=== PATIENT | female | born 1960 | race Caucasian/White ===

== ENCOUNTER 2024-11-10 18:53 | Observation (INO) ==
[2024-11-10 19:20] LABS: Basophils # (auto) 0.03 K/uL (0.00-0.20); Basophils % (auto) 0.2 %; Eosinophils # (auto) 0.06 K/uL (0.00-0.50); Eosinophils % (auto) 0.5 %; Hematocrit (blood only) 35.5 % (37.0-47.0); Hemoglobin 12.6 g/dl (12.0-16.0); Immature Granulocytes # (auto) 0.05 K/uL (0.01-0.20); Immature Granulocytes % (auto) 0.4 %; Lymphocytes # (auto) 1.16 K/uL (1.20-3.40); Lymphocytes % (auto) 9.3 %; Mean Corpuscular Hemoglobin 30.7 pg (25.0-34.0); Mean Corpuscular Hgb Conc 35.5 g/dL (32.0-36.0); Mean Corpuscular Volume 86.4 fL (80.0-100.0); Monocytes % (auto) 4.8 %; Neutrophils # (auto) 10.64 K/uL (1.40-6.50); Neutrophils % (auto) 84.8 %; Platelet Count 314 K/uL (130-400); RDW Coefficient of Variation 13.6 % (11.5-14.5); RDW Standard Deviation 42.1 fL (36.4-46.3); Red Blood Count 4.11 M/uL (4.20-5.40); White Blood Count 12.54 K/ul (4.8-10.8)
[2024-11-10 19:44] LABS: Albumin Globulin Ratio 1.4 (0.9-2); Albumin Level 4.4 gm/dl (3.4-5.0); BUN Creatinine Ratio 15.9 (10-20); Bilirubin,Total 0.7 mg/dl (0.2-1.0); Calcium 9.9 mg/dl (8.6-10.3); Creatinine Clr Calc Pharmacy 60.9 ml/min; Globulin 3.1 gm/dl (2.5-4.0); Total Protein 7.5 gm/dl (6.0-8.3)
[2024-11-10 19:52] LABS: Potassium 3.9 mmol/L (3.5-5.1)
[2024-11-10 21:14] LABS: Appearance Urine Cloudy (Clear); Bacteria Urine Automated None Seen (None Seen); Bilirubin Urine Negative (Negative); Blood Urine Trace (Negative); Cast Urine Automated 0-2 /lpf (0-2); Color Urine Yellow; Epithelial Cell Urine Auto 0-2 /hpf (0-2); Glucose Urine UA Negative (Negative); Ketones Urine 1+ (Negative); Leukocyte Esterase Urine 3+ (Negative); Nitrite Urine Negative (Negative); Protein Urine Negative (Negative); Specific Gravity Urine 1.021 (1.000-1.030); Urobilinogen Urine Negative (Negative); WBC Urine Automated >50 /hpf (0-5)
[2024-11-10] MEDS: ONDANSETRON INJ 2 MG/ML 2 ML VIAL IV STA (22:33)
[2024-11-10] MEDS: ACETAMINOPHEN 1,000 MG/100 ML VIAL IV STA (22:33)
[2024-11-10] MEDS: OPTIRAY 320 100ml IV ONE (22:50)
--- NOTE | 2024-11-11 00:06 | CT Scan Report ---
Exam(s): CT ABDOMEN + PELVIS With Contrast IV Amt: 93ml optiray 320 EXAM: CT Abdomen and Pelvis With Intravenous Contrast CLINICAL HISTORY: Reason for exam: Diverticulitis, severe abdominal pain. TECHNIQUE: Axial computed tomography images of the abdomen and pelvis with intravenous contrast. CTDI is 17.94 mGy and DLP is 846.73 mGy-cm. Automated exposure control was utilized for the study. A dose lowering technique was utilized adhering to the principles of ALARA. CONTRAST: Patient received 93ml optiray 320 of IV contrast COMPARISON: No relevant prior studies available. FINDINGS: ABDOMEN: Liver: 2 small cysts within the liver. Liver otherwise unremarkable. Gallbladder and bile ducts: Unremarkable. No calcified stones. No ductal dilation. Pancreas: Unremarkable. No mass. No ductal dilation. Spleen: Unremarkable. No splenomegaly. Adrenals: Unremarkable. No mass. Kidneys and ureters: Simple appearing cysts in both kidneys. No follow-up is necessary. No hydronephrosis or dilated ureter. Stomach and bowel: No diverticulitis. No obstruction. No mucosal thickening. PELVIS: Appendix: The appendix is distended up to a diameter of 9 mm. There is edema in the surrounding fat. Findings are consistent with acute appendicitis. Bladder: Unremarkable. No mass. Reproductive: Hysterectomy. ABDOMEN and PELVIS: Intraperitoneal space: Unremarkable. No free air. No significant fluid collection. Bones/joints: No acute findings. Soft tissues: Unremarkable. Vasculature: Unremarkable. No abdominal aortic aneurysm. Lymph nodes: Unremarkable. No enlarged lymph nodes. IMPRESSION: Appendicitis. Communications: Call Doctor Appendicitis Electronically signed by: Rodney Spence MD 11/11/24 00:05 AM
[2024-11-11] MEDS: SODIUM CHLORIDE 0.9% 1,000 ML IV ONE (00:12)
--- NOTE | 2024-11-11 00:19 | Emergency Department Note ---
Impression & Plan Appendicitis ED Provider Note NAME: KALA CUETO AGE: 64 SEX: F : 1960 ARRIVES VIA: Walk-In INFORMANT: Patient, ED PROVIDER(S): Korey Campbell MD CHIEF COMPLAINT: Abdominal pain, nausea HPI: This is a 64-year-old female presented for abdominal pain and nausea that began this morning. Patient notes that history of colitis but never had pain to severe. She notes it is a bandlike pain across her lower abdomen. She notes nausea without vomiting. She notes dry heaves. She notes diarrhea. ROS: See above HPI for pertinent positives & negatives. A total of 10 systems reviewed and were otherwise negative. PAST MEDICAL HISTORY: See Below PAST SURGICAL HISTORY: See Below FAMILY HISTORY: See Below SOCIAL HISTORY: See Below HOME MEDICATIONS: See Below ALLERGIES: See Below VITALS: See Below PHYSICAL EXAMINATION: General: resting comfortably in no acute distress Head: Normocephalic and atraumatic Eyes: Normal inspection, extraocular muscles intact Ear, nose, throat: Normal external exam Neck: Normal range of motion Respiratory: lungs clear to auscultation bilaterally Cardiovascular: Regular rate/rhythm, no murmur GI: Exquisite right lower and left lower quadrant abdominal tenderness, no rebound Extremities: nontender, moves all extremities Neuro: The patient awake and alert, appropriately conversive, no focal deficits, symmetric faces Skin: Warm, dry, and intact MEDICAL DECISION MAKING: This is a 64-year-old female presented for abdominal pain/nausea. -Blood work reveals a slight leukocytosis to 12.54 -Patient given IV fluids, Zofran and Tylenol -Urinalysis reveals possible UTI -CT imaging reveals acute appendicitis -Will give IV cefepime and Flagyl here -Discussed with surgical PA here, Parisa,, admitted to surgical service Differential diagnosis: Appendicitis, cholecystitis, diverticulitis, bowel perforation, aortic aneurysm Independent History obtained from: Diagnostics interpreted by me: ECG: None Cardiac Monitoring: An order was placed for continuous cardiac monitoring. The monitor shows a rate of 91 with sinus rhythm. Past Med/Surg History Problem List (Updated 11/11/24 @ 01:34 by Korey Campbell MD) Appendicitis (Acute) Acute appendicitis Gastritis Encounter for pre-operative examination Collagenous colitis Dysphagia Nausea Epigastric abdominal pain Right flank pain Renal cyst Colitis Medical History Dysphagia Hx of migraines Tachycardia currently on metoprolol; f/u [facility] cardiology Colitis Hypertension Depression Surgical History History of partial hysterectomy History of esophagogastroduodenoscopy (EGD) Hx of colonoscopy [place] teeth extracted Previous back surgery Family History Denies family history of Crohn's disease Colorectal cancer Ulcerative colitis Social History Smoking Status: Never smoker Second Hand Exposure: Yes (hx as child); Do You Dip or Chew Tobacco: No; Hx Alcohol Use: Yes Alcohol type: wine Hx Substance Use: No Preferred Language: Lithuanian Communication Ability: Effective Parboiler Required: No Beliefs That Will Affect Care: None Current Living Situation: Spouse and Family Feels Safe at Home: Yes Assistive Devices: Glasses Allergies Allergies Allergy/AdvReac Type Severity Reaction Status Date / Time Penicillins Allergy Mild RASH Verified 08/09/23 13:54 Home Meds Home Medications Medication Instructions Recorded Confirmed calcium citrate 250 mg PO HS 07/15/23 08/09/23 duloxetine 60 mg capsule,delayed 60 mg PO HS 07/15/23 08/09/23 release hydrochlorothiazide 12.5 mg tablet 12.5 mg PO HS 07/15/23 08/09/23 losartan 100 mg tablet 100 mg PO HS 07/15/23 08/09/23 meclizine 25 mg tablet 25 mg PO DAILY PRN Vertigo 07/15/23 08/09/23 mecobalamin (vitamin B12) 5,000 5,000 mcg PO HS 07/15/23 08/09/23 mcg chewable tablet metoprolol succinate 50 mg 50 mg PO HS 07/15/23 08/09/23 tablet,extended release 24 hr biotin 1,000 mcg chewable tablet 1,000 mcg PO HS 07/27/23 08/09/23 budesonide 3 mg 9 mg PO HS 07/27/23 08/09/23 capsule,delayed,extended release cholecalciferol (vitamin D3) 125 125 mcg PO HS 07/27/23 08/09/23 mcg (5,000 unit) tablet (Vitamin D3) omega 0-lzk-fpu-fish oil 1,200 mg 2 cap PO HS 07/27/23 08/09/23 (144 mg-216 mg) capsule (Fish Oil) Previous Rx's Medication Instructions Recorded famotidine 40 mg tablet 40 mg PO DAILY #30 tabs 08/09/23 Results & Data (ED) Vital Signs Vital Signs - 24 hr 11/10/24 18:56 11/10/24 20:50 11/10/24 20:57 Temperature 36.7 C Temperature Source Temporal Artery Scan Pulse Rate 89 77 Pulse Rate [Apical] 90 Pulse Rate from SpO2 Sensor Pulse Rhythm [Apical] Pulse Strength [Apical] Respiratory Rate 20 24 Respiratory Effort / Characteristics Respiratory Depth Respiratory Pattern Blood Pressure 172/102 H Blood Pressure [Left Arm] 162/103 H Blood Pressure Mean 125 Blood Pressure Mean [Left Arm] 122 Blood Pressure Position [Left Arm] Pulse Oximetry 97 99 Oxygen Delivery Method Room Air Room Air Sepsis Recent Fever Within 48 Hours No Sepsis New/Unexplained Change in Mental Status No Sepsis Action Taken by Nursing No Action Required 11/10/24 21:00 11/10/24 21:02 11/10/24 22:00 Temperature Temperature Source Pulse Rate 85 81 Pulse Rate [Apical] 83 Pulse Rate from SpO2 Sensor 82 83 Pulse Rhythm [Apical] Pulse Strength [Apical] Respiratory Rate 14 17 16 Respiratory Effort / Characteristics Respiratory Depth Respiratory Pattern Blood Pressure 139/85 151/100 H Blood Pressure [Left Arm] 139/85 Blood Pressure Mean 103 125 Blood Pressure Mean [Left Arm] 103 Blood Pressure Position [Left Arm] Pulse Oximetry 98 99 98 Oxygen Delivery Method Sepsis Recent Fever Within 48 Hours Sepsis New/Unexplained Change in Mental Status Sepsis Action Taken by Nursing 11/10/24 23:00 11/11/24 00:03 11/11/24 01:02 Temperature Temperature Source Pulse Rate 84 Pulse Rate [Apical] 78 91 H Pulse Rate from SpO2 Sensor Pulse Rhythm [Apical] Regular Pulse Strength [Apical] Normal Respiratory Rate 16 21 Respiratory Effort / Characteristics Non-Labored Spontaneous Respiratory Depth Normal Respiratory Pattern Regular Blood Pressure Blood Pressure [Left Arm] 152/99 H 149/96 H Blood Pressure Mean Blood Pressure Mean [Left Arm] 116 113 Blood Pressure Position [Left Arm] Sitting Pulse Oximetry 92 98 Oxygen Delivery Method Room Air Room Air Sepsis Recent Fever Within 48 Hours Sepsis New/Unexplained Change in Mental Status Sepsis Action Taken by Nursing Laboratory Data 11/10/24 19:02 11/10/24 19:02 Lab Results 11/10/24 11/10/24 Range/Units 19:02 20:48 WBC 12.54 H (4.8-10.8) K/ul RBC 4.11 L (4.20-5.40) M/uL Hgb 12.6 (12.0-16.0) g/dl Hct 35.5 L (37.0-47.0) % MCV 86.4 (80.0-100.0) fL MCH 30.7 (25.0-34.0) pg MCHC 35.5 (32.0-36.0) g/dL RDW Std Deviation 42.1 (36.4-46.3) fL RDW Coeff of [place] 13.6 (11.5-14.5) % Plt Count 314 (130-400) K/uL MPV 10.0 (9.4-12.4) fL Immature Gran % (Auto) 0.4 % Neut % (Auto) 84.8 % Lymph % (Auto) 9.3 % [place] % (Auto) 4.8 % Eos % (Auto) 0.5 % Baso % (Auto) 0.2 % Neut # (Auto) 10.64 H (1.40-6.50) K/uL Lymph # (Auto) 1.16 L (1.20-3.40) K/uL [place] # (Auto) 0.60 H (0.11-0.59) K/uL Eos # (Auto) 0.06 (0.00-0.50) K/uL Baso # (Auto) 0.03 (0.00-0.20) K/uL Immature Gran # (Auto) 0.05 (0.01-0.20) K/uL Sodium 134 L (136-145) mmol/L Potassium 3.9 (3.5-5.1) mmol/L Chloride 102 (98-107) mmol/L Carbon Dioxide 25 (21-32) mmol/L Anion Gap 7 (3-11) BUN 13 (6-23) mg/dl Creatinine 0.82 (0.6-1.2) mg/dl Est Cr Clr Drug Dosing 60.9 ml/min eGFR 79.83 BUN/Creatinine Ratio 15.9 (10-20) Glucose 128 H (70-99(Fasting)) mg/dl Calcium 9.9 (8.6-10.3) mg/dl Total Bilirubin 0.7 (0.2-1.0) mg/dl AST 23 (13-39) U/L ALT 17 (7-52) U/L Alkaline Phosphatase 54 (34-104) U/L Total Protein 7.5 (6.0-8.3) gm/dl Albumin 4.4 (3.4-5.0) gm/dl Globulin 3.1 (2.5-4.0) gm/dl Albumin/Globulin Ratio 1.4 (0.9-2) Lipase 36 (11-82) U/L Urine Color Yellow Urine Appearance Cloudy A (Clear) Urine pH 5.0 (4.5-7.5) Ur Specific [place] 1.021 (1.000-1.030) Urine Protein Negative (Negative) Urine Glucose (UA) Negative (Negative) Urine Ketones 1+ H (Negative) Urine Blood Trace H (Negative) Urine Nitrite Negative (Negative) Urine Bilirubin Negative (Negative) Urine Urobilinogen Negative (Negative) Ur Leukocyte Esterase 3+ H (Negative) Urine WBC (Auto) >50 H (0-5) /hpf Urine RBC (Auto) 3-5 H (0-2) /hpf U Hyaline Cast (Auto) 0-2 (0-2) /lpf U Epithel Cells (Auto) 0-2 (0-2) /hpf Urine Bacteria (Auto) None Seen (None Seen) Administered Medications Discontinued Medications Acetaminophen (Ofirmev) 1,000 mg in 100 mls @ 400 mls/hr IV NOW STA Stop: 11/10/24 22:16 Last Infusion: 11/11/24 01:08 Dose: Infused Documented By: sewer and cutter finger buff material: 11/10/24 22:33 Dose: 400 mls/hr Documented By: LAF Sodium Chloride (Nss) 1,000 mls @ 999 mls/hr IV .Q1H1M ONE Stop: 11/11/24 01:02 Last Admin: 11/11/24 00:12 Dose: 999 mls/hr Documented By: MED Metronidazole (Flagyl) 500 mg in 100 mls @ 100 mls/hr IV NOW STA; Protocol Stop: 11/11/24 01:11 Last Admin: 11/11/24 01:05 Dose: 100 mls/hr Documented By: MATT Cefepime HCl (Maxipime 2000mg) 2,000 mg in 20 mls @ 5 mls/min IV NOW STA; Protocol Stop: 11/11/24 00:15 Last Admin: 11/11/24 00:58 Dose: 5 mls/min Documented By: MATT Ioversol (Optiray 320 100ml) 93 ml IV ONCE ONE Stop: 11/10/24 22:43 Last Admin: 11/10/24 22:50 Dose: 93 ml Documented By: NICOLA Ondansetron HCl (Ondansetron Inj 2 Mg/Ml 2 Ml Vial) 4 mg IV NOW STA Stop: 11/10/24 22:03 Last Admin: 11/10/24 22:33 Dose: 4 mg Documented By: GAURAV Imaging Data Radiologist's Impression: Abdomen/Pelvis CT 11/10/24 22:02 CR Exam(s): CT ABDOMEN + PELVIS With Contrast IV Amt: 93ml optiray 320 EXAM: CT Abdomen and Pelvis With Intravenous Contrast CLINICAL HISTORY: Reason for exam: Diverticulitis, severe abdominal pain. TECHNIQUE: Axial computed tomography images of the abdomen and pelvis with intravenous contrast. CTDI is 17.94 mGy and DLP is 846.73 mGy-cm. Automated exposure control was utilized for the study. A dose lowering technique was utilized adhering to the principles of ALARA. CONTRAST: Patient received 93ml optiray 320 of IV contrast COMPARISON: No relevant prior studies available. FINDINGS: ABDOMEN: Liver: 2 small cysts within the liver. Liver otherwise unremarkable. Gallbladder and bile ducts: Unremarkable. No calcified stones. No ductal dilation. Pancreas: Unremarkable. No mass. No ductal dilation. Spleen: Unremarkable. No splenomegaly. Adrenals: Unremarkable. No mass. Kidneys and ureters: Simple appearing cysts in both kidneys. No follow-up is necessary. No hydronephrosis or dilated ureter. Stomach and bowel: No diverticulitis. No obstruction. No mucosal thickening. PELVIS: Appendix: The appendix is distended up to a diameter of 9 mm. There is edema in the surrounding fat. Findings are consistent with acute appendicitis. Bladder: Unremarkable. No mass. Reproductive: Hysterectomy. ABDOMEN and PELVIS: Intraperitoneal space: Unremarkable. No free air. No significant fluid collection. Bones/joints: No acute findings. Soft tissues: Unremarkable. Vasculature: Unremarkable. No abdominal aortic aneurysm. Lymph nodes: Unremarkable. No enlarged lymph nodes. IMPRESSION: Appendicitis. Communications: Call Doctor Appendicitis Electronically signed by: Rodney Spence MD 11/11/24 00:05 AM Discharge Plan Visit Data Chief Complaint: Abdominal Pain Stated Complaint: ABD PAIN, NAUSEA, HEADACHE ED Provider: Korey Campbell Discharge Problem: Appendicitis Forms Stand Alone Forms: My [facility] [employer] Prescriptions Prescriptions: No Action calcium citrate 250 mg calcium tablet 250 mg PO HS duloxetine 60 mg capsule,delayed release(DR/EC) 60 mg PO HS hydrochlorothiazide 12.5 mg tablet 12.5 mg PO HS losartan 100 mg tablet 100 mg PO HS meclizine 25 mg tablet 25 mg PO DAILY PRN (Reason: Vertigo) metoprolol succinate 50 mg tablet extended release 24 hr 50 mg PO HS mecobalamin (vitamin B12) 5,000 mcg tablet,chewable 5,000 mcg PO HS famotidine 40 mg tablet 40 mg PO DAILY Qty: 30 5RF cholecalciferol (vitamin D3) [Vitamin D3] 125 mcg (5,000 unit) Tablet 125 mcg PO HS omega 7-ejz-fuo-fish oil [Fish Oil] 1,200 (144-216) mg Capsule 2 cap PO HS biotin 1,000 mcg Tablet,Chewable 1,000 mcg PO HS budesonide 3 mg capsule,delayed,extend.release 9 mg PO HS Patient Comments: has not started this yet Referrals Referrals: Jose Luis Hylton MD [Primary Care Provider] - Discharge Problem: Appendicitis Qualifiers: Appendicitis type: acute appendicitis Acute appendicitis type: with generalized peritonitis
[2024-11-11] MEDS: CEFEPIME 2000MG 2,000 MG/20 ML SYR IV STA (00:58)
[2024-11-11] MEDS: metroNIDAZOLE 500 MG/100 ML BAG IV STA (01:05)
--- NOTE | 2024-11-11 01:08 | History & Physical Report ---
Date of Service November 11, 2024 Assessment & Plan (1) Acute appendicitis: Plan: Patient is a 64-year-old female with abdominal pain x1 day along with associated nausea and vomiting. Workup in the emergency department revealed WBC of 12.[address] imaging concerning for acute appendicitis. The patient was seen and evaluated early this morning at bedside, on exam she is tender in the RLQ consistent with appendicitis. For now we will admit the patient under observation to the surgical service. Keep patient NPO, continue IV hydration and IV antibiotics with Cefepime and Flagyl. Continue pain control with IV Tylenol and Morphine as needed. Will discuss patient's case with attending surgeon, Dr. Wesley, and will tentatively plan for patient to proceed to the operating theater later today. History of Present Illness Chief Complaint: Abdominal pain Primary Care Provider: Jose Luis Hylton MD Patient is a 64-year-old female who presented to the emergency department with complaints of abdominal pain for the last day. The patient states the pain started in her right lower quadrant and has been persistent since the onset yesterday morning. She has had associated nausea and vomiting as well and has not been able to eat. The patient states the pain does radiate into her mid to left lower quadrant with movement. She denies any fevers, chills, CP, SOB, or changes in urinary or bowel habits. She does tell me that in the past she has had colitis however this has been controlled with diet and she has never requi red any surgical intervention. She denies ever having any previous abdominal surgeries. Due to the pain the patient came to the emergency department for further evaluation. Upon workup her WBC was 12.[address] imaging was concerning for acute appendicitis. Allergies Allergy/AdvReac Type Severity Reaction Status Date / Time Penicillins Allergy Mild RASH Verified 08/09/23 13:54 Home Medications Medication Instructions Recorded Confirmed Type calcium citrate 250 mg PO HS 07/15/23 08/09/23 History duloxetine 60 mg capsule,delayed 60 mg PO HS 07/15/23 08/09/23 History release hydrochlorothiazide 12.5 mg tablet 12.5 mg PO HS 07/15/23 08/09/23 History losartan 100 mg tablet 100 mg PO HS 07/15/23 08/09/23 History meclizine 25 mg tablet 25 mg PO DAILY PRN Vertigo 07/15/23 08/09/23 History mecobalamin (vitamin B12) 5,000 5,000 mcg PO HS 07/15/23 08/09/23 History mcg chewable tablet metoprolol succinate 50 mg 50 mg PO HS 07/15/23 08/09/23 History tablet,extended release 24 hr biotin 1,000 mcg chewable tablet 1,000 mcg PO HS 07/27/23 08/09/23 History budesonide 3 mg 9 mg PO HS 07/27/23 08/09/23 History capsule,delayed,extended release cholecalciferol (vitamin D3) 125 125 mcg PO HS 07/27/23 08/09/23 History mcg (5,000 unit) tablet (Vitamin D3) omega 5-sgk-avp-fish oil 1,200 mg 2 cap PO HS 07/27/23 08/09/23 History (144 mg-216 mg) capsule (Fish Oil) famotidine 40 mg tablet 40 mg PO DAILY #30 tabs 08/09/23 08/09/23 Rx Past Med/Surg History Problem List Appendicitis (Acute) Acute appendicitis Gastritis Encounter for pre-operative examination Collagenous colitis Dysphagia Nausea Epigastric abdominal pain Right flank pain Renal cyst Colitis Medical History Dysphagia Hx of migraines Tachycardia currently on metoprolol; f/u [facility] cardiology Hypertension Depression Surgical History History of partial hysterectomy History of esophagogastroduodenoscopy (EGD) Hx of colonoscopy [place] teeth extracted Previous back surgery Family History Denies family history of Crohn's disease Colorectal cancer Ulcerative colitis Social History Smoking Status: Never smoker Second Hand Exposure: No; Do You Dip or Chew Tobacco: No; Tobacco Cessation Education Requested by Patient: No Hx Alcohol Use: Yes Alcohol type: wine Hx Substance Use: Yes Non-Prescribed Medications: Marijuana Last Used Substance: Days (ago) Preferred Language: Ivorian Communication Ability: Effective Clinic Lead Required: No Beliefs That Will Affect Care: None Current Living Situation: Spouse Other Information That Helps Us Care for You: No Feels Safe at Home: Yes Safety Concerns: Feels Safe At This Time Assistive Devices: Glasses Review of Systems Constitutional: no fever, no chills, no body aches, no weakness and no weight loss Respiratory: no cough, no dyspnea and no wheezing Cardiovascular: no chest pain, no palpitations and no syncope Gastrointestinal: + abdominal pain, + nausea and + vomitin g; no change in stools Genitourinary: no dysuria, no urinary frequency and no hematuria Physical Exam Constitutional: WD/WN, vitals as above Respiratory: normal respiratory effort, lungs clear to auscultation Cardiovascular: RRR, no murmur, no edema Gastrointestinal (Abdomen): Abdomen soft, nondistended, +moderate TTP in the RLQ with +McBurney's point. No signs of peritonitis. Skin: no rashes, warm and dry Psychiatric: A+Ox3, euthymic affect Results & Data Results & Data Vital Signs (Past 12 Hours) Vital Signs Temp Pulse Pulse Resp BP BP Pulse Ox 11/11/24 00:03 91 H 21 149/96 H 98 11/10/24 23:00 78 16 152/99 H 92 11/10/24 22:00 81 16 151/100 H 98 11/10/24 21:02 83 17 139/85 99 11/10/24 21:00 85 14 139/85 98 11/10/24 20:57 77 11/10/24 20:50 90 24 162/103 H 99 11/10/24 18:56 36.7 C 89 20 172/102 H 97 O2 Del Method 11/11/24 00:03 Room Air 11/10/24 23:00 Room Air 11/10/24 22:00 11/10/24 21:02 11/10/24 21:00 11/10/24 20:57 11/10/24 20:50 Room Air 11/10/24 18:56 Room Air Diagnostic Findings Exam(s): CT ABDOMEN + PELVIS With Contrast IV Amt: 93ml optiray 320 EXAM: CT Abdomen and Pelvis With Intravenous Contrast CLINICAL HISTORY: Reason for exam: Diverticulitis, severe abdominal pain. TECHNIQUE: Axial computed tomography images of the abdomen and pelvis with intravenous contrast. CTDI is 17.94 mGy and DLP is 846.73 mGy-cm. Automated exposure control was utilized for the study. A dose lowering technique was utilized adhering to the principles of ALARA. CONTRAST: Patient received 93ml optiray 320 of IV contrast COMPARISON: No relevant prior studies available. FINDINGS: ABDOMEN: Liver: 2 small cysts within the liver. Liver otherwise unremarkable. Gallbladder and bile ducts: Unremarkable. No calcified stones. No ductal dilation. Pancreas: Unremarkable. No mass. No ductal dilation. Spleen: Unremarkable. No splenomegaly. Adrenals: Unremarkable. No mass. Kidneys and ureters: Simple appearing cysts in both kidneys. No follow-up is necessary. No hydronephrosis or dilated ureter. Stomach and bowel: No diverticulitis. No obstruction. No mucosal thickening. PELVIS: Appendix: The appendix is distended up to a diameter of 9 mm. There is edema in the surrounding fat. Findings are consistent with acute appendicitis. Bladder: Unremarkable. No mass. Reproductive: Hysterectomy. ABDOMEN and PELVIS: Intraperitoneal space: Unremarkable. No free air. No significant fluid collection. Bones/joints: No acute findings. Soft tissues: Unremarkable. Vasculature: Unremarkable. No abdominal aortic aneurysm. Lymph nodes: Unremarkable. No enlarged lymph nodes. IMPRESSION: Appendicitis. Code Status & VTE Plan VTE Prophylaxis Plan VTE Prophylaxis will be ordered: Yes Supervising Physician Co-Signing Physician Notes I have seen and examined this patient this am. I agree with the plan for laparoscopic appendectomy, the details of the procedure have been explained to her including the risks and benefits. She expressed understanding and consent has been obtained. PG Care Time/CCT Total # of Minutes Spent Total Time Spent with Patient: Total time spent is greater than 50% in coordination of care (as documented) at patient's floor/unit and/or counseling patient: [place] [address] INT INP/OBS CARE 1/40MIN Patient Type New Medical Decision Making Straight Forward Diagnoses Acute appendicitis K35.80
[2024-11-11] MEDS ORDERED: ONDANSETRON INJ 2 MG/ML 2 ML VIAL IV PRN ×2 (02:09→07:13)
[2024-11-11] MEDS ORDERED: MoRPHine SULFATE 2 MG/ML CARP IV PRN (02:09)
[2024-11-11] MEDS ORDERED: MoRPHine SULFATE 4 MG/ML 1 ML CARP\\VIAL IV PRN (02:09)
[2024-11-11] MEDS: LACTATED RINGER'S 1,000 ML IV SCH (03:21)
[2024-11-11 05:15] LABS: Basophils # (auto) 0.02 K/uL (0.00-0.20); Basophils % (auto) 0.2 %; Hematocrit (blood only) 35.7 % (37.0-47.0); Hemoglobin 12.4 g/dl (12.0-16.0); Immature Granulocytes # (auto) 0.05 K/uL (0.01-0.20); Immature Granulocytes % (auto) 0.4 %; Lymphocytes # (auto) 0.87 K/uL (1.20-3.40); Lymphocytes % (auto) 6.9 %; Mean Corpuscular Hemoglobin 29.8 pg (25.0-34.0); Mean Corpuscular Hgb Conc 34.7 g/dL (32.0-36.0); Mean Corpuscular Volume 85.8 fL (80.0-100.0); Monocytes # (auto) 0.82 K/uL (0.11-0.59); Monocytes % (auto) 6.5 %; Neutrophils # (auto) 10.89 K/uL (1.40-6.50); Platelet Count 301 K/uL (130-400); RDW Coefficient of Variation 13.6 % (11.5-14.5); RDW Standard Deviation 42.5 fL (36.4-46.3); Red Blood Count 4.16 M/uL (4.20-5.40); White Blood Count 12.65 K/ul (4.8-10.8)
[2024-11-11 05:28] LABS: BUN Creatinine Ratio 14.9 (10-20); Calcium 9.1 mg/dl (8.6-10.3); Creatinine Clr Calc Pharmacy 57.7 ml/min; Potassium 3.3 mmol/L (3.5-5.1)
--- OUTSIDE RECORDS SUMMARY | 2024-11-11 05:30 | External Medical Summary | Continuity of Care Document ---
Author Name Unknown Organization [address] Address [address], [place] [id number] Care Team Providers Care Carousel Attendant Name Role Phone Jenna Mccauley Primary Care Physician [phone] [id number] Date(s[facility] 10/05/24 - 10/05/[address] [address] [phone] Encounter Diagnosis Abnormal fasting glucose(Discharge Diagnosis) - 10/05/24 Hypertension(Discharge Diagnosis) - 10/05/24 Abnormal weight gain(Discharge Diagnosis) - 10/05/24 Mixed hyperlipidemia(Discharge Diagnosis) - 10/05/24 Depression(Discharge Diagnosis) - 10/05/24 Chronic GERD(Discharge Diagnosis) - 10/05/24 Discharge Disposition: Home or Self Care Attending Physician: MD Garrick, [place] Allergies, Adverse Reactions, Alerts Substance Criticality Severity Reaction Reaction Severity Status penicillins Rash Active Assessment and Plan Extracted from: Title:TeleHealth Visit Note Author:MD Garrick, [place] Date:10/05/24 1.Abnormal fasting glucose Reviewed previous labs with patient dated June 02, 2023. FBGwas slightly elevated thannormal. Will order hemoglobin A1c. 2.Hypertension Chronic. Monitor BP. Decrease salt intake. Continue medication:Hydrochlorothiazide 12.5 mg1 capsuleonce a day, losartan 100 mgdaily,metoprolol succinate ER 50 mg1 tablet once a day. Check CMP 3.Abnormal weight gain Patient inquired aboutweight loss medicationspecifically GLP 1. Inform patientthere are qualification to be approved on this medication. We also discussedcontraindication,adverse reaction,side effects ofthis medicine. Patient wants to discuss this furtherduringher annual physical. Check TSH 4.Mixed hyperlipidemia Previous labreviewed with patient. Velia valenciaFLP. 5.Depression Chronic. Stable. Continue [id number] mg once a day. 6.Chronic GERD Chronic. Stable. Continueprobiotics daily. Avoid triggers. Follow-up in 1 month for CPE. Advised to get [employer] works doneat least 1 week prior toher next visit. Immunizations Given and Recorded Vaccine Date Status Refusal Reason zoster vaccine, inactivated 01/21/23 Given zoster vaccine, inactivated 07/16/21 Given influenza virus vaccine, inactivated 07/16/21 Give n Medications DULoxetine 40 mg oral delayed release capsule Start: 09/07/24 10:57:00 AM EST, 1 cap, PO, Daily, Disp# 90 cap, Refills: 0, Pharmacy: [facility] Start Date: 09/07/24 Status: Ordered hydroCHLOROthiazide 12.5 mg oral capsule Start: 09/18/24 12:18:00 PM EST, 1 cap, PO, Daily, Disp# 90 cap, Refills: 0, Pharmacy: [id number] Start Date: 09/18/24 Status: Ordered ketoconazole 2% topical cream Start: 01/17/24 4:45:00 PM EDT, 1 appl, topical, bid, Disp# 60 g, Refills: 1, Pharmacy: [id number] Start Date: 01/17/24 Status: Ordered losartan 100 mg oral tablet Start: 05/19/24 12:02:00 PM EDT, 1 tab, PO, Daily, Disp# 90 tab, Refills: 3, Pharmacy: [facility] Start Date: 05/19/24 Status: Ordered meclizine 25 mg oral tablet Start: 02/28/10 7:25:00 PM EDT, 1 tab, PO, tid, Disp# 30 tab, Refills: 0, PRN: as needed for dizziness, Pharmacy: [facility]/pharmacy #[id number] Start Date: 02/28/10 Status: Ordered Metoprolol Succinate ER 50 mg oral tablet, extended release Start: 12/13/23 5:42:00 PM EDT, 1 tab, PO, Daily, Disp# 90 tab, Refills: 3, , Pharmacy: [facility] Start Date: 12/13/23 Status: Ordered Vitamin B12 1000 mcg oral tablet Start: 08/24/23 12:57:00 PM EST, 1 tab, PO, Daily Start Date: 08/24/23 Status: Ordered Vitamin D3 Start: 07/14/23 2:27:00 PM EDT Start Date: 07/14/23 Status: Ordered Mental Status 10/05/24 Barriers to Learning one year None evide nt Mandatory Health Literacy Documentation Yes Health Literacy Communication Barriers N ever Primary Language Estonian Problem List Condition Confirmation Course Effective Dates Status H ealth Status Informant Depression Confirmed Active Chronic colitis Confirmed Active Lymphocytic colitis Confirmed Active Epigastric pain Confirmed Active History of palpitations Confirmed Active HYPERTENSION Confirmed Active Hair loss Confirmed Active Elevated LDL cholesterol level Confirmed Active Lumbar spondylosis Confirmed Active Hot flashes due to menopause Confirmed Active Microscopic colitis Confirmed Active Osteopenia Confirmed Active Right upper quadrant abdominal pain Confirmed Active Schwannomatosis Confirmed Active Tachycardia Confirmed Active Weight disorder Confirmed Active Diagnosis Diagnosis Type Effective Dates Health Status Clinical Service Informant Mixed hyperlipidemia Discharge Diagnosis 10/05/24 Non-Specified Abnormal weight gain Discharge Diagnosis 10/05/24 Non-Specified Hypertension Discharge Diagnosis 10/05/24 Non-Specified Abnormal fasting glucose Discharge Diagnosis 10/05/24 Non-Specified Depression Discharge Diagnosis 10/05/24 Non-Specified Chronic GERD Discharge Diagnosis 10/05/24 Non-Specified Procedures Procedure Date Related Diagnosis Body Site Status Chest X-ray 1 05/03/23 Completed US abdominal scan 2 05/03/23 Compl eted Mammogram 3 04/15/23 Completed Mammogram 4 04/13/22 Completed Colonoscopy 5 03/02/[address] of abdomen and pelvis wit h contrast 6 12/10/21 Completed Ultrasound 7 04/10/21 Completed Mammogram 8 04/09/21 Completed Colonoscopy 05/14/19 Completed Hysterectomy Completed Laminotomy 9 Completed 1No acute chest disease. 21. Unremarkable gallbladder. 2. No bilary ductal dilation. 3. Complex 1.6 cm right renal cyst. 3[facility] Impression: ACR BI-RADS CATEGORY 1: NEGATIVE 1. [facility]: [facility] BI-RADS CATEGORY 1: NEGATIVE 1. No evidence of malignancy 5COLO to TI , hremrorroids, random AC and sigmoid colon bx done, repeat colo 5 years. 6IMPRESSION: 1. No urinary calculi or hydronephrosis. No upper tract urothelial lesions. 2. Suboptimal evaluation of the bladder given incomplete opacification. Distended bladder. 3. No acute process within the abdomen or pelvis. 7PELVIC ULTRASOUND, TRANSABDOMINAL AND TRANSVAGINAL IMPRESSION: 1. prior hysterectomy 2. small right ovarian and left paraovarian cyst 8[facility] Impression: ACR BI-RADS CATEGORY 2: BENIGN, ULTRASOUND ACR BI-RADS CATEGORY 2: BENIGN 1. Stable bilateral mammograms, without mammographic evidece of maligmacy. There is no targeted sonographic evidence of malignancy in the left breast in the areas of pain reported by the patient or to explain the intermittent nippe discharge. 9revomoval of spinal schwannoma Social History Social History Type Response Smoking Status Never smoked cigaret ramirez Sex Female Sex Representation Female (finding) [facility] Outpt Note * MD Garrick, [place]: PERFORM Event Display: FCM Outpt Note Authored Date: [id number] TeleHealth Visit Note I have confirmed the patients name and date of . The patient has consented to this service,and I have advised the patient that this is a billable visit for which they may be subject to a copay. The patient initiated this visit after they were informed of the availability of TeleHealth for this medically necessary visit. I am located at my office. The patient is located at home. This visit was conducted via live audio/video technology via [employer]. Chief Complaint telehealth - yrly appt to review medications, overall health. History of Present Illness 64 y/o F seen via telehealth for follow up of chronic medical condition -HTN. She takes HCTZ,losartan and metoprolol succinate. Patient reported that her blood pressurewas elevated when she went tothe dentistbecause of toothacheand root canal procedure. -Abnormal weight gain. Patient reportedthat she is trying tolose weightbut instead she is still gaining more weight. -Depression. On duloxetine. Denies new complaint. -GERD. States that since she isprobioticdaily,it did improvereflux symptomsand also helphermicroscopic colitis. -Mixed hyperlipidemia. Not on medication. Denies fever, headache, dizziness. Denies nasal congestion, ear pain Denies chest pain or shortness of breath Denies abdominal pain, nausea or vomiting, diarrhea or constipation Denies dysuria, frequency or urgency of urination Denies blood in the urine or stool Denies Numbness, tingling sensation or weakness of the extremities. Denies joint pain or muscle aches. Review of Systems see hpi Physical Exam General: No acute distress. Speaking in full sentences. Doesn't appear anxious or upset. HEENT: Conjunctivae clear. No discharge noted from eyes. No nasal discharge. No congestion appreciated. No swelling noted in face/ lips. No visible neck masses/ JVD. Respiratory: Good inspiratory effort, no use of accessory muscles. No labored breathing. No audible wheezing. Skin: No rash visible on exposed skin areas. [place]/normal coloration. No diaphoresis appreciated. Neuro: Alert & oriented x 3. Logical thought process. Psych: Normal affect & mood Assessment/Plan 1.Abnormal fasting glucose Reviewed previous labs with patient dated June 02, 2023. FBGwas slightly elevated thannormal. Will order hemoglobin A1c. 2.Hypertension Chronic. Monitor BP. Decrease salt intake. Continue medication:Hydrochlorothiazide 12.5 mg1 capsuleonce a day, losartan 100 mgdaily,metoprolol succinate ER 50 mg1 tablet once a day. Check CMP 3.Abnormal weight gain Patient inquired aboutweight loss medicationspecifically GLP1. Inform patientthere are qualification to be approved on this medication. We also discussedcontraindication,adverse reaction,side effects ofthis medicine. Patient wants to discuss this furtherduringher annual physical. Check TSH 4.Mixed hyperlipidemia Previous labreviewed with patient. Velia valenciaFLJose. 5.Depression Chronic. Stable. Continue [id number] mg once a day. 6.Chronic GERD Chronic. Stable. Continueprobiotics daily. Avoid triggers. Follow-up in 1 month for CPE. Advised to get [employer] works doneat least 1 week prior tohernext visit. Attestation Time spent on pre-visit plannin minutes Face to face time spent w/ patient:20 minutes Time spent documenting pertinent clinical information into the EMR:7 minutes Total time:32 minutes Problem List/Past Medical History Ongoing Back pain Chronic colitis Depression Elevated LDL cholesterol level Epigastric pain Hair loss History of palpitations Hot flashes due to menopause HYPERTENSION LBP (low back pain) Lumbar spondylosis Lymphocytic colitis Microscopic colitis Osteopenia Right upper quadrant abdominal pain Schwannomatosis Tachycardia Weight disorder Resolved HTN (hypertension) Hysterectomy Intermittent urinary incontinence Procedure/Surgical History Chest X-ray| Service Date: 05/03/2023US abdominal scan| Service Date: 05/03/2023Mammogram|Service Date: 04/15/2023Mammogram| Service Date: 2Colonoscopy| Service Date: 2CT of abdomen and pelvis with contrast| Service Date: 12/10/2021Ultrasound| Service Date: Mammogram| Service Date: 04/09/2021olonoscopy| Service Date: 05/14/2019HysterectomyLaminotomy Medications cholecalciferol(Vitamin D3) cyanocobalamin(Vitamin B12 1000 mcg oral tablet), 1000 mcg= 1 tab, PO, Daily DULoxetine(DULoxetine 40 mg oral delayed release capsule), 1 cap, PO, Daily hydroCHLOROthiazide(hydroCHLOROthiazide 12.5 mg oral capsule), 12.5 mg= 1 cap, PO, Daily ketoconazole topical(ketoconazole 2% topical cream), 1 appl, topical, bid, 1 refills losartan(losartan 100 mg oral tablet), 1 tab, PO, Daily meclizine(meclizine 25 mg oral tablet), 25 mg= 1 tab, PO, tid, PRN metoprolol(Metoprolol Succinate ER 50 mg oral tablet, extended release), 50 mg= 1 tab, PO, Daily, 3refills Allergies penicillinsRash Social History Smoking Status Never smoked cigarettes Alcohol Use:Current Type:Beer, Wine, Liquor Frequency:1-2 times per month Substance Abuse - Denies Substance Abuse Tobacco - Denies Tobacco Use Family History Alcoholism: Brother. Heart attack: Father, Brother and PGM. Hypertension: Mother and PGF. Stroke: Brother. Type II diabetes mellitus: Brother. Health Status Family Member(s) Immunizations Vaccine Date Status zoster vaccine, inactivated 01/21/2023 Given zoster vaccine, inactivated 07/16/2021 Given influenza virus vaccine, inactivated 07/16/2021 Given Recommendations Health Maintenance Pending(in the next year) OverDue Adult Influenza Vaccine due03/13/24and every 1year Due Adult COVID-19 Vaccination due10/05/24Unknown Frequency Adult Social Determinants of Health Screening due10/05/24Unknown Frequency Adult Tdap/Td Vaccine due10/05/24Unknown Frequency Hepatitis C Screening due10/05/24One-time only Due In Future Body Mass Index not due until01/17/25and every 366day Satisfied(in the past 1 year) There are no satisfied recommendations within the defined date range Electronic Signature on File Electronically Reviewed/Signed by: Jenna Mccauley MD Author Signature Dt/Tm:10/05/2024 12:06 PM Department of Family Medicine VS Patient Care team information Care Team Personnel Name: MD Garrick, Jenna Position: Physician - Family Med Member Role: Primary Care Provider Address: [address] [place] [id number] Care Team Related Persons Name: BARBI CUETO Name: SAYRA CUETO"
--- OUTSIDE RECORDS SUMMARY | 2024-11-11 05:30 | External Medical Summary | Continuity of Care Document ---
Author Name Unknown Organization [address] [id number] Care Team Providers Care Loss Prevention And Safety Manager Name Role Phone Jenna Mccauley Primary Care Physician [phone] [facility]counter [phone] Date(s): 11/02/24 - 11/02/[address] [address] [phone] Encounter Diagnosis Need for influenza vaccination(Discharge Diagnosis) - 11/02/24 Mixed hyperlipidemia(Discharge Diagnosis) - 11/03/24 Body mass index [BMI] 29.0-29.9, adult(Discharge Diagnosis) - 11/02/24 Annual physical exam(Discharge Diagnosis) - 11/02/24 HYPERTENSION(Discharge Diagnosis) - 11/03/24 Skin lesion of face(Discharge Diagnosis) - 11/03/24 GERD (gastroesophageal reflux disease)(Discharge Diagnosis) - 11/03/24 Sleep apnea(Discharge Diagnosis) - 11/03/24 Ganglion cyst of foot(Discharge Diagnosis) - 11/03/24 Discharge Disposition: Home or Self Care Attending Physician: MD Mccauley [place] Referring Physician: MD Mccauley [place] Encounter Type: Clinic Allergies, Adverse Reactions, Alerts Substance Criticality Severity Reaction Reaction Severity Status penicillins Rash Active Assessment and Plan Extracted from: Title:Office Visit Note Author:MD Garrick, Henna santos Date:11/02/24 1.Mixed hyperlipidemia Chronic. Reviewed recent lab results with patient. Slightly elevated cholesterol and LDL. Advised to continue diet and exercise. 2.HYPERTENSION Chronic. Stable. ContinueHCTZ 12.5 mg daily, losartan 100 mg 1 tablet daily and metoprololsuccinate ER 50 mg1 tablet once a day. Monitor blood pressure. Decrease salt intake. 3.Skin lesion of face Referral to dermatology per request. 4.Ganglion cyst of foot Referral to dermatology per request. 5.Need for influenza vaccination Ordered andadministered today. 6.GERD (gastroesophageal reflux disease) Continue probioticsas it helpsher withreflux andmicroscopiccolitis. 7.Sleep apnea Continue use of CPAP. Follow-up in 6 monthsfor CPE. Advised to get her fasting blood works done prior to appointment. Follow up as needed. She Immunizations Given and Recorded Vaccine Date Status Refusal Reason influenza virus vaccine, inactivated 11/02/24 Give n influenza virus vaccine, inactivated 07/16/21 Give n zoster vaccine, inactivated 01/21/23 Given zoster vaccine, inactivated 07/16/21 Given SARS-CoV-2 (COVID-19) mRNA BNT-162b2 vax 09/10/21 Recorded SARS-CoV-2 (COVID-19) mRNA BNT-162b2 vax 11/25/20 Recorded SARS-CoV-2 (COVID-19) mRNA BNT-162b2 vax 11/04/20 Recorded Medications DULoxetine 40 mg oral delayed release capsule Start: 09/07/24 10:57:00 AM EST, 1 cap, PO, Daily, Disp# 90 cap, Refills: 0, Pharmacy: [facility] Start Date: 09/07/24 Status: Ordered Quantity: 90.0 Unit: cap Repeat number: 1 hyaluronic acid Start: 11/02/24 1:30:00 PM EST, hyaluronic acid, Note to Pharmacy: 1 tablet by mouth Start Date: 11/02/24 Status: Ordered Repeat number: 1 hydroCHLOROthiazide 12.5 mg oral capsule Start: 09/18/24 12:18:00 PM EST, 1 cap, PO, Daily, Disp# 90 cap, Refills: 0, Pharmacy: [id number] Start Date: 09/18/24 Status: Ordered Quantity: 90.0 Unit: cap Repeat number: 1 ketoconazole 2% topical cream Start: 01/17/24 4:45:00 PM EDT, 1 appl, topical, bid, Disp# 60 g, Refills: 1, Pharmacy: [id number] Start Date: 01/17/24 Status: Ordered Quantity: 60.0 Unit: g Repeat number: 2 losartan 100 mg oral tablet Start: 05/19/24 12:02:00 PM EDT, 1 tab, PO, Daily, Disp# 90 tab, Refills: 3, [facility]acy: [facility] Start Date: 05/19/24 Status: Ordered Quantity: 90.0 Unit: tab Repeat number: 1 meclizine 25 mg oral tablet Start: 02/28/10 7:25:00 PM EDT, 1 tab, PO, tid, Disp# 30 tab, Refills: 0, PRN: as needed for dizziness, Pharmacy: [id number] Start Date: 02/28/10 Status: Ordered Quantity: 30.0 Unit: tab Repeat number: 1 Metoprolol Succinate ER 50 mg oral tablet, extended release Start: 12/13/23 5:42:00 PM EDT, 1 tab, PO, Daily, Disp# 90 tab, Refills: 3, , Pharmacy: [facility] Start Date: 12/13/23 Status: Ordered Quantity: 90.0 Unit: tab Repeat number: 4 Probiotic Formula Start: 11/02/24 1:30:00 PM EST Start Date: 11/02/24 Status: Ordered Repeat number: 1 Vitamin D3 Start: 07/14/23 2:27:00 PM EDT Start Date: 07/14/23 Status: Ordered Repeat number: 1 Mental Status 11/02/24 Barriers to Learning one year None evide nt Mandatory Health Literacy Documentation Yes Health Literacy Communication Barriers N ever Primary Language Kittitian Problem List Condition Confirmation Course Effective Dates Status H ealth Status Informant Depression Confirmed Active Chronic colitis Confirmed Active Lymphocytic colitis Confirmed Active Epigastric pain Confirmed Active GERD (gastroesophageal reflux disease) Confirmed Active History of palpitations Confirmed Active [...] Effective Dates Health Status Clinical Service Informant Body mass index [BMI] 29.0-29.9, adult Discharge Diagnosis 11/02/24 Non-Specified Annual physical exam Discharge Diagnosis 11/02/24 Non-Specified Need for influenza vaccination Discharge Diagnosis 11/02/24 Non-Specified Skin lesion of face Discharge Diagnosis 11/03/24 Non-Specified Sleep apnea Discharge Diagnosis 11/03/24 Non-Specified HYPERTENSION Discharge Diagnosis 11/03/24 Non-Specified Mixed hyperlipidemia Discharge Diagnosis 11/03/24 Non-Specified Ganglion cyst of foot Discharge Diagnosis 11/03/24 Non-Specified GERD (gastroesophageal reflux disease) Discharge Diagnosis 11/03/24 Non-Specified Procedures Procedure Date Related Diagnosis Body [...] Complex 1.6 cm right renal cyst. 3[facility] Impression: ACR BI-RADS CATEGORY 1: NEGATIVE 1. No evidence of malignancy 4[facility] Impression: ACR BI-RADS CATEGORY 1: NEGATIVE [...] right ovarian and left paraovarian cyst 8[facility] Impression: ACR BI-RADS CATEGORY 2: BENIGN, ULTRASOUND ACR BI-RADS CATEGORY 2: BENIGN 1. Stable bilateral mammograms, without mammographic evidece of maligmacy. There is no targeted sonographic evidence of malignancy in the left breast in the areas of pain reported by the patient or to explain the intermittent nippe discharge. 9revomoval of spinal schwannoma Vital Signs Most recent to oldest [Reference Range]: 1 Height 156 cm (11/02/24 1:31 PM) Patient Weight 72.1 kg (11/02/24 1:31 PM) Body Mass Index 29.63 kg/m2 (11/02/24 1:31 PM) Heart Rate 68 bpm (11/02/24 1:31 PM) Respiratory Rate 16 br/min (11/02/24 1:31 PM) Blood Pressure 120/80mmHg (11/02/24 1:31 PM) Cuff Pulse Pressure 40 mmHg (11/02/24 1:31 PM) Social History Social History Type Response Smoking Status Never smoked cigaret ramirez Sex Female Sex Representation Female (finding) [facility]CM Outpt Note * MD Garrick, [place]: PERFORM Event Display: FCM Outpt Note Authored Date: Chief Complaint Discuss lab results. Has a spot on right side of forehead. Check bump right foot, between big toe and 2nd digit. Zepbound for sleep apnea? History of Present Illness 64-year-old female here today for follow-up ofchronic medical condition. HLP. Recent labs showedmildly elevated cholesterol and LDL cholesterol. Patient is not on medication. Per patient this is probably due to eating a lot of [place]. Hypertension. Currently on hydrochlorothiazide 12.5 mgoncea day, losartan 100 mg 1 tablet once a day and metoprolol succinate ER50 mg once a day. BP today at goal. GERD. Patient takes probiotics which helpheartburn andmicroscopic colitis Skin lesionabove the right eyebrow:Tiny mildlyerythematouspapule. No crust seen. Patient noticed this for a couple of weeks now. Cystic lesion on the right foot:Nontender, no swelling. Sleep apnea. She uses CPAP every other nightdue to difficulty wearing the maskwhich causing sorenessand itching of the noseand sides of the nose. It also makes her congestedin the morning. She uses saline spray for morning congestion. Review of Systems see hpi Physical Exam Vitals & Measurements HR:68(Monitored) RR:16 BP:120/80 SpO2:98% HT:156cm WT:72.100kg(Dosing) WT:72.1kg BMI:29.63 PHQ2 Data(Data Documented on:11/02/2024 13:31) Emotional health assessment NEGATIVE General: alert and oriented, no acute distress Eye: PERRL, EOMI, normal conjunctiva HENT: normocephalic, TMs clear, normal hearing, moist oral mucosa, no pharyngeal erythema, no sinus tenderness Neck: supple, non-tender, no lymphadenopathy, no thyromegaly Resp: Lungs CTA, non-labored respirations, BS equal, symmetrical expansion CV: normal rate and rhythm, no murmur, no gallop GI: soft, non-tender, non-distended, normal bowel sounds, no organomegaly : no CVA tenderness MS: normal gait Integumentary:Skin lesionabove the right eyebrow:Tiny mildlyerythematouspapule. No crust seen.Right footdorsum:Approximately1 cmelongatedcystic masslocatedbetween firstand second distalmetatarsal. Nontender to palpation, mobile, no erythema or swelling. See image. Psychiatric: appropriate mood and affect, normal judgement, non-suicidal Assessment/Plan 1.Mixed hyperlipidemia Chronic. Reviewed recent lab results with patient. Slightly elevated cholesterol and LDL. Advised to continue diet and exercise. 2.HYPERTENSION Chronic. Stable. ContinueHCTZ 12.5 mg daily, losartan 100 mg 1 tablet daily and metoprololsuccinate ER 50 mg1 tablet once a day. Monitor blood pressure. Decrease salt intake. 3.Skin lesion of face Referral to dermatology per request. 4.Ganglion cyst of foot Referral to dermatology per request. 5.Need for influenza vaccination Ordered andadministered today. 6.GERD (gastroesophageal reflux disease) Continue probioticsas it helpsher withreflux andmicroscopiccolitis. 7.Sleep apnea Continue use of CPAP. Follow-up in 6 monthsfor CPE. Advised to get her fasting blood works done prior to appointment. Follow up as needed. She Attestation Time spent on pre-visit plannin min Face to face time spent w/ patient:23 min Time spent documenting pertinent clinical information into the EMR:9 min Total time:37 min Problem List/Past Medical History Ongoing Back pain Chronic colitis Depression Elevated LDL cholesterol level Epigastric pain GERD (gastroesophageal reflux disease) Hair loss History of palpitations Hot flashes due to menopause HYPERTENSION LBP (low back pain) Lumbar spondylosis Lymphocytic colitis Microscopic colitis Osteopenia Right upper quadrant abdominal pain Schwannomatosis Tachycardia Weight disorder Resolved HTN (hypertension) Hysterectomy Intermittent urinary incontinence Procedure/Surgical History Chest X-ray| Service Date: 05/03/2023US abdominal scan| Service Date: 05/03/2023Mammogram|Service Date: 08/03/2023Mammogram| Service Date: 2Colonoscopy| Service Date: 2CT of abdomen and pelvis with contrast| Service Date: 12/10/2021Ultrasound| Service Date: Mammogram| Service Date: 1Colonoscopy| Service Date: 05/14/2019HysterectomyLaminotomy Medications bifidobacterium-lactobacillus(Probiotic Formula) cholecalciferol(Vitamin D3) DULoxetine(DULoxetine 40 mg oral delayed release capsule), [...] 50 mg= 1 tab, PO, Daily, 3refills unknown medication(hyaluronic acid) Allergies penicillinsRash Social History Smoking Status Never smoked cigarettes Alcohol Use:Current Type:Beer, Wine, Liquor Frequency:1-2 times per month Substance Abuse - Denies Substance Abuse Tobacco - Denies Tobacco Use Intake (IView) Smoking History Cigarette smoker: Never smoked cigarettes Tobacco Product Use: Never used other tobacco products Family History Alcoholism: Brother. Heart attack: Father, Brother and PGM. Hypertension: Mother and PGF. Stroke: Brother. Type II diabetes mellitus: Brother. Health Status Family Member(s) Immunizations Vaccine Date Status influenza virus vaccine, inactivated 11/02/2024 Given zoster vaccine, inactivated 01/21/2023 Given SARS-CoV-2 (COVID-19) mRNA BNT-162b2 vax 09/10/2021 Recorded zoster vaccine, inactivated 07/16/2021 Given influenza virus vaccine, inactivated 07/16/2021 Given SARS-CoV-2 (COVID-19) mRNA BNT-162b2 vax 11/25/2020 Recorded SARS-CoV-2 (COVID-19) mRNA BNT-162b2 vax 11/04/2020 Recorded Recommendations Health Maintenance Pending(in the next year) Due Adult COVID-19 Vaccination due11/03/24Unknown Frequency Adult Social Determinants of Health Screening due11/03/24Unknown Frequency Adult Tdap/Td Vaccine due11/03/24Unknown Frequency Hepatitis C Screening due11/03/24One-time only Due In Future Adult Influenza Vaccine not due until03/13/25and every 1year Satisfied(in the past 1 year) Satisfied Adult Influenza Vaccine on11/02/24.Satisfied by TRAY Garcia Amber Body Mass Index on11/02/24.Satisfied by TRAY Goyal Bobbi Electronic Signature on File Electronically Reviewed/Signed by: Jenna Mccauley MD Author Signature Dt/Tm:11/03/2024 02:13 AM Department of Family Medicine VS Patient Care team information Care Team Personnel Name: MD Garrick, Jenna Position: Physician - Family Med Member Role: Primary Care Provider Address: [address] [place] [address] Telecom: [phone] Care Team Related Persons Name: BARBI CUETO Name: SAYRA CUETO Insurance Providers Guarantor name: KALA CUETO Health Plan Information #: 3 Payer: [employer] PCP ONLY Member Number: [id number] Policy Number: NA Group Number: NA Health Plan Information #: 1 Payer: [facility] [employer] Member Number: [id number] Policy Number: NA Group Number: [id number] Health Plan Information #: 2 Payer: Member Number: [id number] Policy Number: NA Group Number: [id number]"
[2024-11-11] MEDS: ACETAMINOPHEN 1,000 MG/100 ML VIAL IV SCH (05:36)
[2024-11-11] MEDS ORDERED: ROCURONIUM BROMIDE 10 MG/ML 5 ML VIAL IV ONE (07:10)
[2024-11-11] MEDS ORDERED: LIDOCAINE 2% 2 ML VIAL/AMP(20MG/ML) INFIL ONE (07:10)
[2024-11-11] MEDS ORDERED: SUCCINYLCHOLINE CHLORIDE 20 MG/ML 10 ML VIAL IV ONE (07:10)
[2024-11-11] MEDS ORDERED: PROPOFOL IV EMULSION 10 MG/ML 20 ML VIAL IV ONE (07:10)
[2024-11-11] MEDS ORDERED: fentaNYL citrate PF 100 MCG/2 ML VIAL ONE ×2 (07:10→09:33)
[2024-11-11] MEDS ORDERED: ONDANSETRON INJ 2 MG/ML 2 ML VIAL ONE (07:11)
[2024-11-11] MEDS ORDERED: DEXAMETHASONE SOD INJ 4 MG/ML VIAL ONE (07:11)
--- NOTE | 2024-11-11 07:11 | Anesthesiology Consultation ---
Date of Service November 11, 2024 Assessment & Plan Chart Review Chart Review: Acceptable Risk for Surgery and Patient NOT seen in Pre Admission Testing Consults Requested none ASA [id number] Proposed Anesthesia Anesthesia Type: General History Surgery Operation Date: 11/11/24 07:00 Proposed Procedures p Laparoscopic Appendectomy - Lázaro Wesley DO Height/Weight Height: 5 ft Weight: 71.696 kg Allergies Allergy/AdvReac Type Severity Reaction Status Date / Time Penicillins Allergy Mild RASH Verified 08/09/23 13:54 Medications Home Medications Medication Instructions Recorded Confirmed Last Taken calcium citrate 250 mg PO HS 07/15/23 08/09/23 07/28/23 duloxetine 60 mg capsule,delayed 60 mg PO HS 07/15/23 08/09/23 07/28/23 release hydrochlorothiazide 12.5 mg tablet 12.5 mg PO HS 07/15/23 08/09/23 07/28/23 losartan 100 mg tablet 100 mg PO HS 07/15/23 08/09/23 07/28/23 meclizine 25 mg tablet 25 mg PO DAILY PRN Vertigo 07/15/23 08/09/23 Unknown mecobalamin (vitamin B12) 5,000 5,000 mcg PO HS 07/15/23 08/09/23 07/28/23 mcg chewable tablet metoprolol succinate 50 mg 50 mg PO HS 07/15/23 08/09/23 07/28/23 tablet,extended release 24 hr biotin 1,000 mcg chewable tablet 1,000 mcg PO HS 07/27/23 08/09/23 07/27/23 budesonide 3 mg 9 mg PO HS 07/27/23 08/09/23 Unknown capsule,delayed,extended release cholecalciferol (vitamin D3) 125 125 mcg PO HS 07/27/23 08/09/23 07/28/23 mcg (5,000 unit) tablet (Vitamin D3) omega 6-smy-zos-fish oil 1,200 mg 2 cap PO HS 07/27/23 08/09/23 07/27/23 (144 mg-216 mg) capsule (Fish Oil) famotidine 40 mg tablet 40 mg PO DAILY #30 tabs 08/09/23 08/09/23 Unknown Active Medications Generic Name Dose Route Start Last Admin Trade Name Freq PRN Reason Stop Dose Admin Acetaminophen 1,000 mg in 100 mls @ 400 mls/hr 11/11/24 06:00 11/11/24 06:16 Ofirmev IV 11/14/24 02:08 Infused Q8H YAMILEX Infusion Lactated Ringer's 1,000 mls @ 125 mls/hr 11/11/24 02:09 11/11/24 03:21 Lr IV 11/12/24 02:08 125 mls/hr .Q8H YAMILEX Administration Past Medical History Medical History Dysphagia Hx of migraines Tachycardia currently on metoprolol; f/u [facility] cardiology Hypertension Depression Gerd FRANCISCO Obese Anemia Exercise / Class Metabolic Activity II 4-5 Yardwork/Stairs/Walk up hill Past Family History Family History Denies family history of Crohn's disease Colorectal cancer Ulcerative colitis Past Surgical History Surgical History History of partial hysterectomy History of esophagogastroduodenoscopy (EGD) Hx of colonoscopy [place] teeth extracted Previous back surgery Past Anesthesia History No Hx of Anesthesia Complications and No Family Hx of Anesthesia Complications History of PONV No Hx of PONV and No Hx of Motion Sickness Social History Smoking Status: Never smoker Do You Dip or Chew Tobacco: No Hx Alcohol Use: Yes Alcohol type: wine alcohol intake frequency: 0-2 drinks per day Hx Substance Use: Yes substance use type: marijuana Last Used Substance: Days (ago) Physical Exam Vital Signs Last Vital Signs Temp 36.5 C 11/11/24 07:05 Pulse 88 11/11/24 07:05 Resp 15 11/11/24 07:05 BP 132/83 11/11/24 07:05 Pulse Ox 94 11/11/24 07:05 O2 Del Method Room Air 11/11/24 07:05 Testing Laboratory Results 11/11/24 04:44 11/11/24 04:44 Urine Color Yellow 11/10/24 20:48 Urine Appearance Cloudy (Clear) A 11/10/24 20:48 Urine pH 5.0 (4.5-7.5) 11/10/24 20:48 Ur Specific [place] 1.021 (1.000-1.030) 11/10/24 20:48 Urine Protein Negative (Negative) 11/10/24 20:48 Urine Glucose (UA) Negative (Negative) 11/10/24 20:48 Urine Ketones 1+ (Negative) H 11/10/24 20:48 Urine Nitrite Negative (Negative) 11/10/24 20:48 Ur Leukocyte Esterase 3+ (Negative) H 11/10/24 20:48 Urine WBC (Auto) >50 /hpf (0-5) H 11/10/24 20:48 Urine RBC (Auto) 3-5 /hpf (0-2) H 11/10/24 20:48 U Hyaline Cast (Auto) 0-2 /lpf (0-2) 11/10/24 20:48 U Epithel Cells (Auto) 0-2 /hpf (0-2) 11/10/24 20:48 Urine Bacteria (Auto) None Seen (None Seen) 11/10/24 20:48
[2024-11-11] MEDS ORDERED: FLUMAZENIL 0.1 MG/1 ML 10 ML VIAL IV PRN (07:13)
[2024-11-11] MEDS ORDERED: LABETALOL HCL IV 5 MG/ML 20ML IV PRN (07:13)
[2024-11-11] MEDS ORDERED: NALOXONE HCL 0.4 MG/1 ML VIAL/CARP IV PRN (07:13)
[2024-11-11] MEDS ORDERED: HYDROmorphone INJ 1 MG/ML SYRINGE IV PRN (07:13)
[2024-11-11] MEDS ORDERED: ePHEDrine sulfate 50 MG/ML AMP IV PRN (07:13)
[2024-11-11] MEDS ORDERED: ATROPINE SULFATE 0.1 MG/ML 10ML SYR IV PRN (07:13)
[2024-11-11] MEDS ORDERED: fentaNYL citrate PF 100 MCG/2 ML VIAL IV PRN (07:13)
[2024-11-11] MEDS ORDERED: PROMETHAZINE HCL 6.25 MG in SODIUM CHLORIDE 0.9% 50 ML IV PRN (07:13)
[2024-11-11] MEDS ORDERED: DROPERIDOL 5 MG/2 ML VIAL ONE (08:38)
[2024-11-11] MEDS: ceFAZolin 2000MG 2,000 MG/15 ML SYR IV ONE (08:58)
[2024-11-11] MEDS: FLOSEAL HEMOSTATIC MATRIX 5ML TOP ONE (09:28)
[2024-11-11] MEDS ORDERED: SUGAMMADEX SODIUM 200 MG/2 ML VIAL IV ONE (09:30)
[2024-11-11] MEDS: BUPIVACAINE/EPINEPHRINE 0.5% MPF 1:200,000 30 ML VIAL ONE (09:40)
[2024-11-11] MEDS: BACITRACIN OINT 14 GM TUBE ONE (09:54)
--- NOTE | 2024-11-11 10:05 | Operative Report ---
PG Post Operative Report Pre & Post Diagnosis Operation Date: 11/11/24 07:00 Pre-Op Diagnosis: Acute Appendicitis Post-Op Diagnosis: Acute Appendicitis I identified the patient and participated in the time-out.: Yes Procedure Operation Date: 11/11/24 07:00 Actual Procedures p Laparoscopic Appendectomy(Not Applicable) - Lázaro Wesley DO Surgeon Lázaro Wesley DO Sales Operations No assistant financial accountant Estimated Blood Loss 7 Findings See Below Acute appendicitis without perforation, with purulent exudate, purulent tinged fluid in the pelvis Specimens Appendix Drains None Anesthesia Type General Complications None Indications Presented to the ED with physical exam and CT evidence for acute appendicitis, mild leukocytosis Description of Procedure The patient was brought back to the operating room and placed on the operating room table in supine position. She was connected to cardiac and oxygen monitoring, supplemental O2 was provided and SCDs were applied to bilateral lower extremities. The patient was administered general anesthesia and a secure airway was established. The abdomen was prepped and draped in typical sterile fashion and a timeout was conducted. Local anesthetic was used anesthetize the skin and subcutaneous tissues prior to making all incisions and all incisions were made with an 11 blade. Intra-abdominal access was gained using a Veress needle at the infraumbilical fold. This was confirmed using the saline drop test. CO2 insufflation was initiated and pneumoperitoneum was established to a goal pressure of 15 mmHg. Once this pressure was reached, a 5 mm trocar was inserted using direct visualization with a 5 mm laparoscope and Optiview port. Under direct visualization a 12 mm trocar was inserted at the left lower quadrant and a 5 mm trocar at the midline suprapubic region. Upon initial inspection of the intra-abdominal space, the appendix was not readily identified. A small amount of physiologic fluid was suctioned away from the right paracolic gutter. The OR table was then positioned in Trendelenburg and left side down and upon mobilizing the terminal ileum the appendix was identified adhesed to its mesentery beneath. The appendix was covered with exudative material and was gently teased away from the surrounding mesentery and peritoneum. The sign excision was used to ligate and transect the mesoappendix containing the periappendiceal artery and clear the base of the appendix at to its origin at the cecum. A purple loaded 45 mm Endo IVY stapler was then used to ligate and transect the appendix away from the base of the cecum. Care was taken not to include any other surrounding tissues or bowel. The appendix was placed in an Endo Catch bag and removed from the left lower quadrant incision. The appendix was then placed in a label container and sent to pathology for further analysis. Excess shari that were discharged from the stapler were suc tioned away. The stapled area was inspected for hemostasis, there was a small amount of bleeding of serosa immediately adjacent to the staple line medially and this was controlled using 5 mm clips. The area was irrigated and suctioned multiple times to be sure hemostasis was achieved. There was no bleeding, the appearance of the overall serosal service remained at the area and Floseal was used. Excess irrigant was suctioned away and the deep pelvis was inspected. Here purulent tinged fluid was identified which was also suctioned away and irrigated copiously. The OR table was returned to the neutral position the omentum was short and would not reach to the surgical site for additional coverage. Of note, the patient did have significant omental adhesions to the area of the right upper quadrant. The instruments were removed, CO2 insufflation was discontinued and excess pneumoperitoneum was evacuated from the abdomen. The trocars were removed. The fascia at the left lower quadrant incision was closed using 0 Vicryl suture. Additional local anesthetic was injected into the subcutaneous tissues at all incision sites. The 3 incisions were then further closed at the skin using 4-0 Vicryl suture. The abdomen was wiped clean with a saline soaked lap pad, dried and the incisions were further sealed with Dermabond. The patient tolerated the procedure well. She was awakened from anesthesia, the secure airway was removed and she is transferred to recovery in stable condition. I attest to the content of the Intraoperative Record and any orders documented therein. Any exceptions are noted below.
--- NOTE | 2024-11-11 10:57 | Anesthesiology Progress Note ---
Date of Service November 11, 2024 Anesthesia Post Procedure Vital Signs Vital Signs: Temp Pulse Pulse Pulse Resp BP BP 11/11/24 10:50 92 H 17 102/59 L 11/11/24 10:40 37 C 89 20 105/68 11/11/24 10:29 89 19 107/46 L 11/11/24 10:20 90 18 102/64 11/11/24 10:10 100 H 13 104/56 L 11/11/24 10:03 36 C L 99 H 19 120/52 L 11/11/24 07:05 36.5 C 88 15 132/83 11/11/24 01:50 37 C 93 H 13 152/91 H 11/11/24 01:36 90 17 131/75 11/11/24 01:02 84 11/11/24 00:03 91 H 21 149/96 H 11/10/24 23:00 78 16 152/99 H 11/10/24 22:00 81 16 151/100 H 11/10/24 21:02 83 17 139/85 11/10/24 21:00 85 14 139/85 11/10/24 20:57 77 11/10/24 20:50 90 24 162/103 H 11/10/24 18:56 36.7 C 89 20 172/102 H Pulse Ox O2 Del Method O2 Flow Rate 11/11/24 10:50 97 Nasal Cannula 2 11/11/24 10:40 96 Nasal Cannula 2 11/11/24 10:29 94 Nasal Cannula 2 11/11/24 10:20 97 Oxymask 4 11/11/24 10:10 99 Oxymask 8 11/11/24 10:03 95 Oxymask 8 11/11/24 07:05 94 Room Air 11/11/24 01:50 94 Room Air 11/11/24 01:36 96 Room Air 11/11/24 01:02 11/11/24 00:03 98 Room Air 11/10/24 23:00 92 Room Air 11/10/24 22:00 98 11/10/24 21:02 99 11/10/24 21:00 98 11/10/24 20:57 11/10/24 20:50 99 Room Air 11/10/24 18:56 97 Room Air Pain Intensity Abdomen: Pain Intensity: 3 Transfer of Care Handoff Completed per policy Notes Mental Status: alert / awake / arousable Patient Amnestic to Procedure: Yes Nausea / Vomiting: adequately controlled Pain: adequately controlled Airway Patency, RR, SpO2: stable & adequate BP & HR: stable & adequate Hydration State: stable & adequate Anesthetic Complications: no major complications apparent
[2024-11-11 11:43] VITALS: RESP 16
[2024-11-11 13:39] VITALS: BP 108/68; PULSE 85; TEMP 98.1; O2SAT 96
--- NOTE | 2024-11-16 15:37 | Discharge Summary ---
Date of Service November 16, 2024 Admission HPI Per Admitting Provider Patient is a 64-year-old female who presented to the emergency department with complaints of abdominal pain for the last day. The patient states the pain started in her right lower quadrant and has been persistent since the onset yesterday morning. She has had associated nausea and vomiting as well and has not been able to eat. The patient states the pain does radiate into her mid to left lower quadrant with movement. She denies any fevers, chills, CP, SOB, or changes in urinary or bowel habits. She does tell me that in the past she has had colitis however this has been controlled with diet and she has never requ ired any surgical intervention. She denies ever having any previous abdominal surgeries. Due to the pain the patient came to the emergency department for further evaluation. Upon workup her WBC was 12.[address] imaging was concerning for acute appendicitis. She underwent an uneventful laparoscopic appendectomy on 11/11/2024. Details of the procedure can be found in a separately dictated operative report. She was discharged after the procedure. 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 Discharge Exam Constitutional no acute distress, not ill appearing, not disheveled and not diaphoretic Discharge Data Allergies Allergy/AdvReac Type Severity Reaction Status Date / Time Penicillins Allergy Mild RASH Verified 08/09/23 13:54 Consultations 11/11/24 00:27 ED Decision to Admit Stat Procedures Performed Operation Date: 11/11/24 07:00 Actual Procedures p Laparoscopic Appendectomy(Not Applicable) - Lázaro Wesley DO Ordered Studies 11/10/24 22:02 CT abd pelvis IV con only Stat Total Time Total Time Spent Total Time Spent (In Minutes): 20 Discharge Plan Discharge Items Patient Disposition: Home - Self-Care Reason For Visit: APPENDICITIS Discharge Diagnosis: appendicitis Activity: Per Instructions section Lifting: No more than 25 pounds Bathing Comment: May shower tomorrow. No bathing until after follow-up appointment Sexual Activity: When tolerated Exercise/Sports: Rest today and Gradually increase as tolerated Exercise Comment: No heavy lifting Driving/Machine Use: Resume when not taking pain meds or sore from surgery Weightbearing: Full weightbearing Non-emergency contact: Primary Care Provider and Surgeon Call non-emergency contact if: your pain is not controlled, your temperature is above 101, your wound has increased redness and your wound has increased drainage Follow-up/Referrals: Mroalez-Lázaro Mcdonnell DO [Physician] - (call our office Monday 11/13 to make your follow up appointment ) Jose Luis Hylton MD [Primary Care Provider] - Diet: Low Fiber Diet Comment: Light diet today and then low fiber diet tomorrow and for 2 weeks Addtl Attending Provider Instructions: SPECIAL CARE INSTRUCTIONS: * You will have skin glue on top of your incisions. You may shower and let soap and water run over this however do NOT scrub over the sites. * You may shower 11/12/2024 . NO soaking in bath tubs, hot tubs, or pools for 2 weeks * No lifting greater than 10lbs. No exercise until cleared by surgeon. Light walking is accepted. * No driving while taking narcotic pain medication * No drinking alcohol while taking narcotic pain medication * May use Ibuprofen/Tylenol over the counter for pain as tolerated. Do not exceed 3grams of Tylenol per 24 hours * Expect some swelling and bruising. * Diet as normal Call your doctor if: * Temperature above 101 degrees, nausea/vomiting, fever/chills * Pain not relieved by pain medicine ordered * There is increased drainage or redness from any incision * You have any unanswered questions or concerns [phone]. FOLLOW UP VISIT: If not already scheduled, please call the office for a follow-up visit. Office Pending Studies at Discharge: Yes Studies:: Pathology Stand-Alone Forms: [facility] Thinkful, Smoking Cessation Medications and DC Order Prescriptions: New oxycodone 5 mg tablet 5 mg PO Q4H PRN (Reason: pain) Qty: 14 0RF Continued calcium citrate 250 mg calcium tablet 250 mg PO HS duloxetine 60 mg capsule,delayed release(DR/EC) 60 mg PO HS hydrochlorothiazide 12.5 mg tablet 12.5 mg PO HS losartan 100 mg tablet 100 mg PO HS meclizine 25 mg tablet 25 mg PO DAILY PRN (Reason: Vertigo) metoprolol succinate 50 mg tablet extended release 24 hr 50 mg PO HS mecobalamin (vitamin B12) 5,000 mcg tablet,chewable 5,000 mcg PO HS famotidine 40 mg tablet 40 mg PO DAILY Qty: 30 5RF cholecalciferol (vitamin D3) [Vitamin D3] 125 mcg (5,000 unit) Tablet 125 mcg PO HS omega 3-vvn-ixb-fish oil [Fish Oil] 1,200 (144-216) mg Capsule 2 cap PO HS biotin 1,000 mcg Tablet,Chewable 1,000 mcg PO HS budesonide 3 mg capsule,delayed,extend.release 9 mg PO HS Patient Comments: has not started this yet Discharge Orders: Discharge Order (Routine); Ordered 11/11/24 Ordered By: Lázaro Wesley Admission Data Admit Date/Time: 11/11/24 00:57 Attending Provider: Lázaro Wesley Admit Provider: Lázaro Wesley Primary Care Provider: Jose Luis Hylton Other Providers: Lázaro Wesley Other Interventions: Discharge Summary Assessment (RN) Last Done: 11/11/24 13:01 Coding Level of Care Code 53726 OBS Care - Discharge
== END 2024-11-11 14:28 | disposition home or self-care (01) ==
LOC: ED 18:53 → 3N 18:53